=== PATIENT | female | born 1980 | race African-American/Black ===

== ENCOUNTER 2023-05-11 14:20 | Outpatient (CLI) | payer BC | END 2023-05-11 14:21 | disposition home or self-care (01) | LOC: CSHMAMMO 14:20 | PROVIDERS: ATTEND Nurse Practitioner Family | DX: Z12.31 Encounter for screening mammogram for malignant neoplasm of breast (principal); Z80.3 Family history of malignant neoplasm of breast | CPT/HCPCS: 77063; 77067 ==

== ENCOUNTER 2025-03-06 14:45 | Outpatient (CLI) | payer BC | END 2025-03-06 14:46 | disposition home or self-care (01) | LOC: CSHMAMMO 14:45 | PROVIDERS: ATTEND Nurse Practitioner Family | DX: Z12.31 Encounter for screening mammogram for malignant neoplasm of breast (principal); Z80.3 Family history of malignant neoplasm of breast | CPT/HCPCS: 77063; 77067 ==

== ENCOUNTER 2025-03-17 08:39 | Outpatient (CLI) | payer BC | END 2025-03-17 08:40 | disposition home or self-care (01) | LOC: CSHDTY/OP 08:39 | PROVIDERS: ATTEND Nurse Practitioner Family | DX: Z71.3 Dietary counseling and surveillance (principal); E11.65 Type 2 diabetes mellitus with hyperglycemia | CPT/HCPCS: 97802 ==

== ENCOUNTER 2025-05-29 09:04 | Outpatient (CLI) | payer BC | END 2025-05-29 09:05 | disposition home or self-care (01) | LOC: CSHDTY/OP 09:04 | PROVIDERS: ATTEND Nurse Practitioner Family | DX: Z71.3 Dietary counseling and surveillance (principal); E11.65 Type 2 diabetes mellitus with hyperglycemia | CPT/HCPCS: 97802 ==